=== PATIENT | female | born 1975 | race Caucasian/White ===

== ENCOUNTER → 2020-06-03 17:21 | Outpatient (CLI) | payer OTHER, SELFPAY ==
--- NOTE | 2020-06-03 17:22 | DI.MG.S_ITS ---
BILATERAL DIGITAL SCREENING MAMMOGRAM 3D/2D WITH CAD: 06/03/2020 CLINICAL: Routine screening. Baseline exam. Family history of breast cancer. No prior exams were available for comparison. The tissue of both breasts is heterogeneously dense. This may lower the sensitivity of mammography. Current study was also evaluated with a Computer Aided Detection (CAD) system. There is a 5 mm oval asymmetry with an obscured margin and fine calcifications in the left breast middle depth central to the nipple seen on the craniocaudal view only 6.5 cm from the nipple. No other significant masses, calcifications, or other findings are seen in either breast. IMPRESSION: INCOMPLETE: NEEDS ADDITIONAL IMAGING EVALUATION The 5 mm oval asymmetry in the left breast is indeterminate. A diagnostic mammogram and ultrasound is recommended. This exam was interpreted at Station ID: [id number]. NOTE: For mammograms, a report in lay terms will be sent to the patient. Approximately 15% of breast malignancies will not be visualized mammographically. In the management of a palpable breast mass, a negative mammogram must not discourage biopsy of a clinically suspicious lesion. Electronically Signed By: Filipe Eli M.D., jr/[place]:06/04/2020 10:20:19 letter sent: Additional Imaging Needed ACR BI-RADS Category 0: Incomplete [id number]
== END ==
PROVIDERS: PCP Obstetrics & Gynecology; Referring Provider Obstetrics & Gynecology; Visit Provider Obstetrics & Gynecology
DX: Z12.31 Encounter for screening mammogram for malignant neoplasm of breast (principal); Z80.3 Family history of malignant neoplasm of breast
CPT/HCPCS: 77063; 77067

== ENCOUNTER → 2020-06-25 13:19 | Outpatient (CLI) | payer OTHER, SELFPAY ==
--- NOTE | 2020-06-25 13:21 | DI.MG.S_ITS ---
UNILATERAL LEFT DIGITAL DIAGNOSTIC MAMMOGRAM 3D/2D WITH ADDITIONAL VIEWS: 06/25/2020 CLINICAL: Additional evaluation requested from prior study. Comparison is made [facility] The tissue of left breast is predominantly fatty. The asymmetry in the left breast middle depth central to the nipple seen on the craniocaudal view only is less prominent on additional views. No other significant masses or calcifications are seen in the breast. IMPRESSION: INCOMPLETE: NEEDS ADDITIONAL IMAGING EVALUATION The asymmetry in the left breast is indeterminate. A targeted ultrasound of the left breast is recommended and will be performed immediately following this exam. This exam was interpreted at Station ID: [id number]. NOTE: For mammograms, a report in lay terms will be sent to the patient. Approximately 15% of breast malignancies will not be visualized mammographically. In the management of a palpable breast mass, a negative mammogram must not discourage biopsy of a clinically suspicious lesion. Electronically Signed By: Julia Umana M.D. lk/:06/25/2020 13:57:09 ACR BI-RADS Category 0: Incomplete [id number]
--- NOTE | 2020-06-25 13:21 | DI.US.S_ITS ---
ULTRASOUND OF LEFT BREAST: 06/25/2020 CLINICAL: Patient returns today to evaluate asymmetry in left breast. Comparison is made to exams dated: 06/25/2020 mammogram and 06/03/2020 mammogram - [facility]. Ultrasound of the left breast was performed on the area of interest. Starr scale images of the real-time examination were reviewed. IMPRESSION: PROBABLY BENIGN There is no sonographic abnormality seen in the left breast to correspond with the mammographic asymmetry. This mammography finding may represent superimposed fibroglandular tissue, however, a precautionary follow-up mammogram and possible ultrasound in 6 months is recommended to demonstrate stability. This exam was interpreted at Station ID: [id number]. Electronically Signed By: Julia sánchez/:06/25/2020 14:29:42 letter sent: Followup Recommended Ultrasound BI-RADS: 3 Probably benign
== END ==
PROVIDERS: PCP Obstetrics & Gynecology; Referring Provider Obstetrics & Gynecology; Visit Provider Obstetrics & Gynecology
DX: R92.8 Other abnormal and inconclusive findings on diagnostic imaging of breast (principal); N64.89 Other specified disorders of breast
CPT/HCPCS: 76642; 77065; G0279

== ENCOUNTER → 2021-02-16 14:08 | Outpatient (CLI) | payer OTHER, SELFPAY ==
--- NOTE | 2021-02-16 14:09 | DI.MG.S_ITS ---
UNILATERAL LEFT DIGITAL DIAGNOSTIC MAMMOGRAM 3D/2D SHORT-TERM FOLLOW-UP: 02/16/2021 CLINICAL: Short term follow up for the left breast. Comparison is made to exams dated: 06/25/2020 mammogram and 06/03/2020 mammogram - [facility]. The tissue of left breast is predominantly fatty. There is a 5 mm irregular equal density asymmetry with an indistinct margin in the left breast middle depth central to the nipple seen on the craniocaudal view only. This is not significantly changed. No other significant masses or calcifications are seen in the breast. IMPRESSION: INCOMPLETE: NEEDS ADDITIONAL IMAGING EVALUATION The 5 mm irregular equal density asymmetry in the left breast is stable compared to prior, but remains indeterminate. An ultrasound is recommended. This was performed immediately following this exam. This exam was interpreted at Station ID: [id number]. NOTE: For mammograms, a report in lay terms will be sent to the patient. Approximately 15% of breast malignancies will not be visualized mammographically. In the management of a palpable breast mass, a negative mammogram must not discourage biopsy of a clinically suspicious lesion. Electronically Signed By: Crystal radofrd/:02/16/2021 14:48:46 ACR BI-RADS Category 0: Incomplete [id number]
--- NOTE | 2021-02-16 14:09 | DI.US.S_ITS ---
ULTRASOUND OF LEFT BREAST: 02/16/2021 CLINICAL: Patient returns today to evaluate a focal asymmetry in the left breast. Comparison is made to exams dated: 02/16/2021 mammogram, 06/25/2020 ultrasound, 06/25/2020 mammogram, and 06/03/2020 mammogram - [facility]. Color flow and real-time ultrasound of the left breast were performed. Starr scale images of the real-time examination were reviewed. There is a benign 0.8 cm x 0.3 cm x 0.3 cm oval cyst in the left breast at 12 o'clock middle depth 3 cm from the nipple. This oval cyst is anechoic with posterior acoustic enhancement. This correlates larger than estimated on mammography, but may correspond. Color flow imaging demonstrates that there is no vascularity present. IMPRESSION: BENIGN There is no sonographic evidence of malignancy. The 0.8 cm x 0.3 cm x 0.3 cm oval cyst in the left breast may correspond to the mammography finding and is benign. Return to annual mammogram screening schedule is recommended. Future imaging is recommended as follows: 06/03/21 screening mammogram. Findings and recommendations were conveyed to the patient at time of exam. This exam was interpreted at Station ID: [id number]. Electronically Signed By: Crystal radford/:02/18/2021 22:42:58 letter sent: Normal Exam Ultrasound BI-RADS: 2 Benign
== END ==
PROVIDERS: PCP Family Medicine; Referring Provider Obstetrics & Gynecology; Visit Provider Obstetrics & Gynecology
DX: R92.8 Other abnormal and inconclusive findings on diagnostic imaging of breast (principal); N64.89 Other specified disorders of breast; N60.02 Solitary cyst of left breast
CPT/HCPCS: 76642; 77065; G0279

== ENCOUNTER → 2021-09-24 15:19 | Outpatient (CLI) | payer OTHER, SELFPAY | PROVIDERS: Referring Provider Internal Medicine; Visit Provider Internal Medicine | DX: Z23 Encounter for immunization (principal) | CPT/HCPCS: 90471; 90686 ==

== ENCOUNTER → 2023-12-13 14:19 | Outpatient (CLI) | payer OTHER, SELFPAY ==
[2023-12-13 15:06] LABS: Hematocrit 39.1 % (36-46); Hemoglobin 13.4 g/dL (12.0-16.0); Mean Corpuscular HGB Conc 34.3 % (30-36); Mean Corpuscular Hemoglobin 29.1 PG (26-34); Mean Corpuscular Volume 84.8 fL (80-100); Platelet Count 428 X10^3/uL (150-400); Red Blood Cell Count 4.61 X10^6/uL (4.0-5.2); Red Cell Distribution Width 14.3 % (11.6-14.8); White Blood Cell Count 8.6 X10^3/uL (4.5-11.0)
[2023-12-13 15:30] LABS: Alanine Aminotransferase 27 IU/L (<35); Albumin 4.5 g/dL (3.5-5.0); Albumin Globulin Ratio 1.3 (1.0-2.8); Alkaline Phosphatase 71 U/L (38-126); Aspartate Aminotransferase 27 IU/L (14-36); BUN Creatinine Ratio 12.9 (6-22); Bilirubin Total 0.5 mg/dL (0.2-1.3); Blood Urea Nitrogen 9 mg/dL (7-17); Carbon Dioxide 23 mmol/L (22-32); Chloride 104 mmol/L (98-107); Cholesterol 153 mg/dL (140-199); Estimated Glomerular Filt Rate > 60 mL/min (>60); Globulin 3.4 g/dL (1.7-4.1); Glucose 106 mg/dL (70-100); HDL Cholesterol 27 mg/dL (40-60); HEMOLYSIS < 15 (0-50); LDL Cholesterol Calculated 92 mg/dL (<100); Potassium 3.8 mmol/L (3.4-5.1); Sodium 138 mmol/L (137-145); Total Protein 7.9 g/dL (6.3-8.2); Triglycerides 168 mg/dL (35-150)
[2023-12-13 15:59] LABS: TSH w/ Reflex to FT4 1.59 uIU/mL (0.47-4.68)
[2023-12-13 19:37] LABS: Follicle Stimulating Hormone 5.52 mIU/mL
[2023-12-14 02:46] LABS: Hemoglobin A1C% w Est Avg Glu 5.9 % (4.0-6.0)
[2023-12-16 13:36] LABS: QuantiFERON Mitogen Value >10.00 IU/mL (.); QuantiFERON Nil Value 0.07 IU/mL (.); QuantiFERON TB Gold Plus Negative (Negative); QuantiFERON TB1 Ag Value 0.09 IU/mL (.); QuantiFERON TB2 Ag Value 0.07 IU/mL (.)
== END ==
PROVIDERS: PCP Internal Medicine; Referring Provider Internal Medicine; Visit Provider Internal Medicine
DX: Z00.00 Encounter for general adult medical examination without abnormal findings (principal); R73.01 Impaired fasting glucose; R53.83 Other fatigue; Z20.9 Contact with and (suspected) exposure to unspecified communicable disease
CPT/HCPCS: 36415; 80053; 80061; 83001; 83036; 84443; 85027; 86480

== ENCOUNTER → 2024-02-17 08:25 | Outpatient (CLI) | payer OTHER, SELFPAY ==
[2024-02-20 10:46] LABS: Candida species Negative (Negative); Gardnerella vaginalis Negative (Negative); Trichomoas vaginalis Negative (Negative)
== END ==
PROVIDERS: PCP Internal Medicine; Visit Provider Obstetrics & Gynecology
DX: N89.8 Other specified noninflammatory disorders of vagina (principal)
CPT/HCPCS: 87480; 87510; 87660